=== PATIENT | female | born 1985 | race Two or more races ===

== ENCOUNTER 2023-01-21 15:51 | Emergency (ER) | payer OTHER ==
[~2023-01-21] VITALS: Ht 149.9 cm; Wt 64.0 kg
[2023-01-21 19:47] LABS: HEMATOCRIT 39.7 % (36.0-45.00); HEMOGLOBIN 13.6 g/dL (12.0-15.00); MEAN CORPUSCULAR HEMOGLOBIN 27.7 pg (27.00-32.0); MEAN CORPUSCULAR HGB CONC 34.3 g/dl (32.0-36.0); PLATELET COUNT 198 K/uL (150-450); RED CELL DISTRIBUTION WIDTH 13.9 % (11.5-14.5)
[2023-01-21 19:56] LABS: PH,URINE 7.5 (5.0-8.0); URINE APPEARANCE Clear; URINE BILIRRUBIN Negative (NEGATIVE); URINE BLOOD Negative; URINE COLOR Yellow; URINE GLUCOSE Negative (NEGATIVE); URINE LEUKOCYTE Negative; URINE NITRATE Negative; URINE PROTEIN Negative (NEGATIVE)
[2023-01-21 20:00] LABS: URINE BACTERIA 115.8 uL (0.0-1933); URINE RBC 2.8 uL (0.0-20.8); URINE WBC 3.7 uL (0.0-23.2)
== END 2023-01-22 00:08 | disposition left against medical advice (07) ==
LOC: ER 15:52
PROVIDERS: Emergency Medicine
DX: R10.2 Pelvic and perineal pain (principal)